=== PATIENT | male | born 1990 ===

== ENCOUNTER 2019-06-13 15:53 | Emergency (ER) | payer MEDICAID ==
[~2019-06-13] VITALS: Ht 177.8 cm; Wt 72.6 kg
[2019-06-13 16:04] VITALS: BP 117/88
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
[2019-06-13] MEDS ORDERED: ROBAXIN-750750 MG PO (17:33)
[2019-06-13] MEDS ORDERED: IBUPROFEN600 MG ORAL (17:33)
[2019-06-13 17:35] VITALS: BP 114/92
== END 2019-06-13 17:35 | disposition home or self-care (01) ==
LOC: EDBD 15:53 → EMR 17:34
DX: M54.5 Low back pain (principal); Y09 Assault by unspecified means
CPT/HCPCS: 72020; Z7502; 99283